=== PATIENT | male | born 1995 | race Caucasian/White ===

== ENCOUNTER → 2016-07-02 | Outpatient (CLI) | payer BC | END | disposition home or self-care (01) | LOC: CT 14:20 | DX: L04.0 Acute lymphadenitis of face, head and neck (principal); R59.0 Localized enlarged lymph nodes ==

== ENCOUNTER → 2020-12-23 | Outpatient (CLI) | payer BC | END | disposition home or self-care (01) | LOC: COVID19 15:20 | PROVIDERS: ATTEND Internal Medicine | DX: U07.1 COVID-19 (principal) ==